=== PATIENT | male | born 1965 | race Caucasian/White ===

== ENCOUNTER 2019-01-27 08:18 | Emergency (ER) | payer OTHER ==
[2019-01-27 08:25] VITALS: TEMP 98.2; BMI 29.8
--- NOTE | 2019-01-27 08:30 | PDOC ---
History of Present Illness - General Chief Complaint: Rectal Bleed Stated Complaint: RECTAL BLEEDING Time Seen by Provider: 01/27/19 08:29 - History of Present Illness Initial Comments: Man Bess is a 53yo man with a PMH of HTN, BPH, known hemorrhoids who presents with BRBPR. He reports bright red blood with bowel movements for several days. He has had similar bleeding in the past, about 4-5 years ago, and was evaluated with a colonoscopy 3-4 years ago which he states was unremarkable. However, he states that previously the bleeding was only "a few drops" and is much heavier this time. He additionally reports that he had continued blood leaking after a bowel movement this morning that he states "soaked a paper towel" which prompted him to come to the hospital. Mr Bess says that he tried applying hemorrhoid medication inside the rectum yesterday using a finger to insert the medication. He feels that this worsened his bleeding. He denies any melena, hemaemesis or recent vomiting, pain with the rectal bleeding, visible anorectal lesions, or previous evaluation with CR surgery. He reports normal, soft bowel movements 2-3 times per day without significant straining. He does report feeling lightheaded and tired this morning and was concerned that he lost a significant amount of blood. Past History - Past Medical History Allergies/Adverse Reactions: Allergies Allergy/AdvReac Type Severity Reaction Status Date / Time No Known Allergies Allergy Verified 01/27/19 08:25 Home Medications: Ambulatory Orders Azilsartan Med/Chlorthalidone [Edarbyclor 40-12.5 mg Tablet] 1 each PO DAILY Tamsulosin HCl [Flomax] 0.4 mg PO HS 01/27/19 CVA: No COPD: No HTN: Yes - Surgical History Cardiac Surgery: No - Immunization History Immunization Up to Date: No - Psycho Social/Smoking Cessation Hx Smoking History: Never smoked Have you smoked in the past 12 months: No Information on smoking cessation initiated: No Hx Alcohol Use: No Drug/Substance Use Hx: No Review of Systems - Review of Systems Comments:: General: No fevers, no chills, no weight or appetite change, no malaise HEENT: No changes in vision, no changes in hearing, no congestion, no sore throat CV: No chest pain, no palpitations, no LE edema Pulm: No SOB, no cough, no wheezing GI: No nausea or vomiting, no change in bowel habits, no melena. +BRBPR : No frequency, no urgency, no dysuria Musc: No back pain, no joint swelling, no recent injury Skin: No rash, no lesions, no erythema Endo: No excessive thirst, no heat/cold intolerance Heme: No unusual bruising or bleeding, no swollen glands Neuro: No syncope, no numbness/tingling, no focal weakness Vasc: No claudication Psych: No recent change in mood, no SI or HI *Physical Exam - Vital Signs Last Vital Signs Temp Pulse Resp BP Pulse Ox 98.2 F 89 18 144/72 98 01/27/19 08:23 01/27/19 08:23 01/27/19 08:23 01/27/19 08:23 01/27/19 08:23 - Physical Exam Comments: General: Comfortable, no acute distress HEENT: PERRL, EOMI, MMM, voice normal, normal neck ROM, no LAD Cards: RRR, no murmur appreciated Pulm: Comfortable on room air, clear to auscultation bilaterally Abd: Soft, nontender, nondistended Rectal: Normal tone, no blood noted, no perianal lesions. Light brown stool on SANTOSH Ext: Atraumatic. No LE edema. ROM intact. Strength 5/5 and equal bilaterally. WWP Skin: Normal color, no rashes or lesions Neuro: A&Ox3, CN grossly intact, normal speech, motor/sensory grossly intact and symmetric Psych: Mood appropriate to situation ED Treatment Course - LABORATORY CBC & Chemistry Diagram: 01/27/19 09:50 01/27/19 09:50 Medical Decision Making - Medical Decision Making 01/27/19 08:54 Man Bess is a 53yo man with a PMH of HTN, BPH, known hemorrhoids who presents with BRBPR that has continued to drip after bowel movements for the past few days. He has tried inserting hemorrhoid medication into the rectum without relief. - Rectal exam without obvious source of bleeding. Light waddell stool in vault. No hemoccult cards available, cannot test - CBC, CMP to evaluate for anemia or other abnormalities 01/27/19 10:47 - Labs reviewed. Unremarkable. Hgb 15.5, no concern for significant bleeding - Continues to feel lightheaded - IVF ordered for likely mild dehydration 01/27/19 12:40 - Feels significantly improved after 2L NS. No longer feeling lightheaded - Able to ambulate with a steady gait - Discussed home care, follow up with PMD and GI, return precautions at length. Mr Bess understand and agrees with the plan Discussed with Dr Gurpreet Desai PGY2 Discharge - Discharge Information Problems reviewed: Yes Clinical Impression/Diagnosis: BRBPR (bright red blood per rectum) Condition: Stable Disposition: HOME - Admission No - Follow up/Referral Referrals: Suman Jean [Primary Care Provider] - Mitchell Power MD [Staff Physician] - - Patient Discharge Instructions Patient Printed Discharge Instructions: DI for Hemorrhoids, DI for Rectal Bleeding Additional Instructions: Discharge Instructions: You were seen in the emergency department for rectal bleeding. You did not have any abnormalities or blood seen on exam, and your lab tests were all normal. There is no sign of significant bleeding. Home Care and Follow Up: - Make sure you are having soft bowel movements without straining. Do not sit on the toilet for more than 5 minutes or push/strain as this can worsen hemorrhoids, which are a common source of bleeding. Consider using Metamucil or another fiber supplement 1-2 times per day. - Follow up with a GI doctor within the next week for additional evaluation. You have been given contact information for Dr Power, but you may choose to see the GI doctor that you saw previously. - Seek immediate care for worsening symptoms, bleeding that does not stop, black tar-like stool, fainting or lightheadedness, or any other medical emergency. - Post Discharge Activity
[2019-01-27 09:56] LABS: BASO % 0.5 % (0-2.0); EOS % 3.1 % (0-4.5); HEMATOCRIT 44.6 % (35.4-49); HEMOGLOBIN 15.5 GM/dL (11.7-16.9); LYMPH % 17.2 % (8-40); MCH 29.6 pg (25.7-33.7); MCHC 34.7 g/dl (32.0-35.9); MEAN CELL VOLUME 85.3 fl (80-96); MEAN PLT VOLUME 7.8 fl (7.5-11.1); MONO % 4.9 % (3.8-10.2); NEUT % 74.3 % (42.8-82.8); PLATELET COUNT 256 K/MM3 (134-434); RBC 5.23 M/mm3 (4.00-5.60); WHITE BLOOD COUNT 7.4 K/mm3 (4.0-10.0)
[2019-01-27 10:26] LABS: BILIRUBIN,TOTAL 0.6 mg/dL (0.2-1); BLOOD UREA NITROGEN 17.4 mg/dL (7-18); CREATININE 0.7 mg/dL (0.55-1.3); POTASSIUM 3.6 mmol/L (3.5-5.1)
--- NOTE | 2019-01-27 10:43 | PDOC ---
Documentation entered by Airana Smalls SCRIBE, acting as scribe for Julián Vázquez MD. Julián Vázquez MD: This documentation has been prepared by the Serina faust Adrianna, SCRIBE, under my direction and personally reviewed by me in its entirety. I confirm that the documentation accurately reflects all work, treatment, procedures, and medical decision making performed by me. Attending Attestation - Resident Resident Name: Georgia Desai - ED Attending Attestation I have performed the following: I have examined & evaluated the patient, The case was reviewed & discussed with the resident, I agree w/resident's findings & plan, Exceptions are as noted - HPI HPI: The patient is a 53 year old male, with a significant PMH of hypertension, benign prostatic hyperplasia, and hemorrhoids, who presents to the ED for evaluation of rectal bleeding for 2 days. Patient endorses bright red blood per rectum, which he describes as drops when he passes a bowel. He denies any red or black stool, and has had normal bowel movements during this time. Patient endorses associated lightheadedness and dizziness during this time, stating that he feels weak and off-balance. He reports one similar episode 4-5 years ago, where his colonoscopy was normal and the bleeding self-resolved after a few days. Denies fever, chills, chest pain, shortness of breath, palpitations, nausea, vomit, abdominal pain. Allergies: NKA, NKDA Surgical History: None reported Social History: Denies EtOH, tobacco, or illicit drug use PCP: Dr. Jean - Physicial Exam PE: Vitals: Triage Vital signs reviewed General Appearance: no acute distress, well nourished well developed, Cardiac: Regular rate and rhythm, no murmurs, no rubs, no gallops, Lungs: Clear to auscultation bilateral, good air movement bilaterally, Abdomen: Soft, nondistended, normal bowel sounds, nontender to palpation Rectal: See resident exam Extremities: Full range of motion to all extremities, no cyanosis, clubbing, or edema Skin: Warm and dry, no rashes or lesions, no petechiae Neuro: AOX3; Cranial Nerves 2-12 grossly c intact, Strength intact to all extremities, Sensation intact to all extremities Psych: normal mood, normal affect - Medical Decision Making 53 year old male, with history of hypertension, benign prostatic hyperplasia, and hemorrhoids, presents with bright red blood per rectum for 2 days. Plan: Labs, stool occult, EKG, reassess Reassessment: patient reports still feeling dizzy and off-balance. Will administer fluids and re-evaluate Reevaluation patient feels better after 1 L normal saline we will have patient follow-up with gastroenterology for rectal bleeding within 1 week Findings, need for follow-up and strict return instructions discussed with patient. Heart Score/ECG Review - ECG Impressions Comment:: EKG performed at 10:22:09 demonstrates rate of 66bpm, normal sinus rhythm, normal axis. Additional findings include: Incomplete right bundle branch block.
[2019-01-27] MEDS ORDERED: SODIUM CHLORIDE 1,000 ML IV STA (10:48)
--- NOTE | 2019-01-27 12:07 | EKG ---
Test Reason : Blood Pressure : / mmHG Vent. Rate : 066 BPM Atrial Rate : 066 BPM P-R Int : 126 ms QRS Dur : 098 ms QT Int : 394 ms P-R-T Axes : 025 037 024 degrees QTc Int : 413 ms NORMAL SINUS RHYTHM INCOMPLETE RIGHT BUNDLE BRANCH BLOCK BORDERLINE ECG NO PREVIOUS ECGS AVAILABLE Confirmed by Jah Humphrey MD ([id number]) on 01/27/2019 12:07:43 PM Referred By: Confirmed By:Jah Humphrey MD
[2019-01-27 13:15] VITALS: BP 125/81; PULSE 72
== END 2019-01-27 13:00 | disposition home or self-care (01) ==
LOC: JER 08:18
PROC: 3E0337Z Introduction of Electrolytic and Water Balance Substance into Peripheral Vein, Percutaneous Approach (ICD-10-PCS; principal; 2019-01-27)
DX: K62.5 Hemorrhage of anus and rectum (principal); K64.9 Unspecified hemorrhoids; I10 Essential (primary) hypertension; N40.0 Benign prostatic hyperplasia without lower urinary tract symptoms
CPT/HCPCS: 36415; 80053; 85025; 93005; 93010; 99283-25; J7030